=== PATIENT | male | born 1980 | race African-American/Black ===

== ENCOUNTER 2016-12-03 08:06 | Emergency (ER) | payer OTHER ==
[~2016-12-03 08:06] MED LIST: ABILIFY5 MG PO; ALBUTEROL SULF8.5 GM IH; ALBUTEROL17 GM IH; AMOXICILLIN500 M1 PO; Benadryl PO; CILOXAN 0.1 APPLICAT LEFT EYE; CLEOCIN300 MG PO; DILAUDID2 MG PO; ERYTHROMYC1 APPLICAT; FLEXERIL10 MG PO; Flexeril PO; HYCODAN SYRUP480 ML PO; IBUPROFEN800 MG PO; KEFLEX500 MG PO; METHADONE10 MG/1 M1 PO; MOTRIN800 MG PO; NAPROSYN500 MG PO; NOHOMEMEDS; PERCOCET 5/31 TABLET PO; PREDNISONE20 M1 PO; PREDNISONE50 MG PO; PROVENTIL,2.5 MG/3 M IH; RISPERIDONE0.5 MG PO; SAPHRIS2.5 MG SL; TYLENOL325 M1 PO; ZITHROMAX Z-PA250 MG PO; celeXA PO
== END 2016-12-03 08:15 | disposition left against medical advice (07) ==
LOC: EME 08:06
DX: S61.411A Laceration without foreign body of right hand, initial encounter (principal); Z53.21 Procedure and treatment not carried out due to patient leaving prior to being seen by health care provider

== ENCOUNTER 2017-01-24 15:00 | Emergency (ER) | payer OTHER ==
[~2017-01-24] VITALS: Ht 182.9 cm; Wt 104.5 kg
[2017-01-24] MEDS ORDERED: VALIUM5 MG PO (15:33)
[2017-01-24] MEDS ORDERED: PREDNISONE10 MG PO (15:33)
[2017-01-24] MEDS ORDERED: METHADONE HCL40 MG PO (15:53)
[2017-01-24 16:08] VITALS: BP 139/87
== END 2017-01-24 16:11 | disposition home or self-care (01) ==
LOC: EME 15:00
DX: M54.5 Low back pain (principal); M62.838 Other muscle spasm; Z88.6 Allergy status to analgesic agent; Z88.2 Allergy status to sulfonamides; Z88.1 Allergy status to other antibiotic agents
CPT/HCPCS: 99281; 99284; J1100; J1885

== ENCOUNTER 2018-01-17 12:34 | Emergency (ER) | payer OTHER ==
[~2018-01-17] VITALS: Ht 182.9 cm; Wt 95.7 kg
[~2018-01-17 12:34] MED LIST changes: +METHADONE HCL40 MG PO; +PREDNISONE10 MG PO; +VALIUM5 MG PO
[2018-01-17 13:38] VITALS: BP 164/88
== END 2018-01-17 13:08 | disposition left against medical advice (07) ==
LOC: EME 12:34
DX: Z04.6 Encounter for general psychiatric examination, requested by authority (principal); Z53.21 Procedure and treatment not carried out due to patient leaving prior to being seen by health care provider
CPT/HCPCS: 80048; 85027; G0480; J2250

== ENCOUNTER 2018-01-17 18:55 | Inpatient (IN) | payer OTHER ==
[~2018-01-17] VITALS: Ht 188 cm; Wt 94.3 kg
[2018-01-17 19:30] LABS: BASOPHIL (%) 0.2 % (0-1); EOSINOPHIL (%) 0.7 % (0-5); EOSINOPHIL COUNT 0.1 K/uL (0-0.3); HEMATOCRIT 44.6 % (38.0-50.0); IMMATURE GRANULOCYTE (%) 0.4 % (0.0-0.7); LYMPHOCYTE (%) 15.2 % (15-42); LYMPHOCYTE COUNT 1.6 K/uL (1.0-2.8); MCH 30.3 PG (29.0-34.0); MCHC 33.6 G/DL (30.0-36.0); MCV 90.1 FL (86-99); MONOCYTE (%) 3.8 % (3-12); MONOCYTE COUNT 0.4 K/uL (0-0.8); NEUTROPHIL (%) 79.7 % (45-76); NEUTROPHIL COUNT 8.5 K/uL (1.8-6.4); PLATELET COUNT 347 K/uL (156-360); RBC DIS.WIDTH-CV 12.7 % (11.8-14.6); RBC DIS.WIDTH-SD 41.6 % (39-53); RED BLOOD COUNT 4.95 M/uL (4.00-5.50); WHITE BLOOD COUNT 10.7 K/uL (4.1-10.2)
[2018-01-17 20:22] LABS: ACETAMINOPHEN (TYLENOL) < 10 MCG/ML (10-30); ALBUMIN 4.4 G/DL (3.2-4.8); ALKALINE PHOSPHATASE 67 IU/L (3-129); ALT (GPT) 78 IU/L (3-49); AST (GOT) 132 IU/L (2-34); CHLORIDE 105 MEQ/L (99-109); CREATININE 1.4 MG/DL (0.6-1.3); GFR ESTIMATE (CALCULATED) > 59 mL/min/ (58.99-99999); GLUCOSE 92 mg/dL (70-99); POTASSIUM 3.9 MEQ/L (3.7-5.4); SALICYLATE < 3.0 MG/DL (15-30); SERUM ETHYL ALCOHOL < 10 mg/dL; SODIUM 142 MEQ/L (136-147); TOTAL BILIRUBIN 1.5 MG/DL (0.0-1.0); TOTAL CK 8258 IU/L (1-294); TOTAL PROTEIN 7.8 G/DL (6.4-8.3); UREA NITROGEN (BUN) 16 mg/dL (9-23)
[2018-01-17 20:23] LABS: CREATINE KINASE 8258 IU/L (1-294)
[2018-01-17 20:40] LABS: CKMB RELATIVE INDEX 0.9 (0.0-3.9)
[2018-01-18 10:16] LABS: CHLORIDE 112 mEq/L (99-109); POTASSIUM 3.9 mEq/L (3.7-5.4); SODIUM 141 mEq/L (136-147)
[2018-01-18 10:18] LABS: GLUCOSE 101 mg/dL (70-99)
[2018-01-18 10:21] LABS: APPEARANCE CLOUDY ((CLEAR)); BILIRUBIN NEGATIVE; BLOOD LARGE; COLOR AMBER ((YELLOW)); GLUCOSE (STRIP) NEGATIVE; KETONES 20; LEUKOCYTES NEGATIVE; NITRITE NEGATIVE; PROTEIN (STRIP) 100; SPECIFIC GRAVITY 1.019 (1.000-1.030); UROBILINOGEN 0.2 MG/DL (0.2-1.0)
[2018-01-18 10:22] LABS: CREATININE 1.3 mg/dL (0.6-1.3); GFR ESTIMATE (CALCULATED) > 59 mL/min/ (58.99-99999)
[2018-01-18 10:23] LABS: UREA NITROGEN (BUN) 22 mg/dL (9-23)
[2018-01-18 10:35] LABS: AMPHETAMINE NEGATIVE (500 ng/mL); BARBITURATES NEGATIVE (200 ng/mL); BENZODIAZEPINES PRESUMPTIVE POSITIVE (150 ng/mL); BUPRENORPHINE NEGATIVE (10 ng/mL); COCAINE PRESUMPTIVE POSITIVE (150 ng/mL); METHADONE PRESUMPTIVE POSITIVE (200 ng/mL); METHAMPHETAMINE NEGATIVE (500 ng/mL); OPIATES (MORPHINE) PRESUMPTIVE POSITIVE (100 ng/mL); OXYCODONE NEGATIVE (100 ng/mL); PHENCYCLIDINE NEGATIVE (25 ng/mL); PROPOXYPHENE NEGATIVE (300 ng/mL); THC CANNABINOIDS NEGATIVE (50 ng/mL); TRICYCLIC ANTIDEPRESSANTS NEGATIVE (300 ng/mL)
[2018-01-18 10:53] LABS: RED BLOOD CELLS NONE SEEN /HPF (0-5); WHITE BLOOD CELLS 0-5 /HPF (0-5)
[2018-01-18 10:54] LABS: BACTERIA RARE /HPF; EPITHELIAL CELLS NONE SEEN /HPF; MUCUS NONE SEEN /LPF
[2018-01-18 10:55] LABS: AMORPHOUS URATES CRYSTALS 3+; HYALINE CASTS 0-5 /LPF
[2018-01-18 11:08] LABS: HEPATITIS B SURFACE ANTIGEN Nonreactive
[2018-01-18 11:09] LABS: ANTI-HEPATITIS B CORE (IGM) Nonreactive; HEPATITIS B SURFACE ANTIBODY Nonreactive; HEPATITIS C ANTIBODY REACTIVE
[2018-01-18 11:27] LABS: BENZODIAZEPINES, URINE SCREEN POSITIVE (200 ng/mL)
[2018-01-18 12:47] LABS: CREATINE KINASE 84050 IU/L (1-294)
[2018-01-18 20:20] VITALS: BP 137/65
[2018-01-18 23:54] VITALS: BP 132/69
[2018-01-19 04:13] VITALS: BP 148/88
[2018-01-19 07:01] LABS: PLAT.SUFFICIENCY ADEQUATE
[2018-01-19 07:04] LABS: HEMATOCRIT 40.9 % (38.0-50.0); HEMOGLOBIN 13.6 G/DL (12.5-16.6); MCH 30.7 PG (29.0-34.0); MCHC 33.3 G/DL (30.0-36.0); MCV 92.3 FL (86-99); RBC DIS.WIDTH-CV 12.6 % (11.8-14.6); RBC DIS.WIDTH-SD 42.8 % (39-53); RED BLOOD COUNT 4.43 M/uL (4.00-5.50); WHITE BLOOD COUNT 9.9 K/uL (4.1-10.2)
[2018-01-19 07:05] LABS: PLATELET COUNT 202 K/uL (156-360)
[2018-01-19 07:41] LABS: CHLORIDE 109 MEQ/L (99-109); CREATININE 1.1 MG/DL (0.6-1.3); GFR ESTIMATE (CALCULATED) > 59 mL/min/ (58.99-99999); GLUCOSE 96 mg/dL (70-99); POTASSIUM 3.9 MEQ/L (3.7-5.4); SODIUM 143 MEQ/L (136-147); UREA NITROGEN (BUN) 16 mg/dL (9-23)
[2018-01-19 07:42] LABS: CREATINE KINASE 41000 IU/L (1-294)
[2018-01-19 08:22] VITALS: BP 134/71
[2018-01-19 11:21] VITALS: BP 144/82
[2018-01-19 15:37] VITALS: BP 144/81
[2018-01-19 20:02] VITALS: BP 131/74
[2018-01-20] VITALS: BP 146/79
[2018-01-20 04:00] VITALS: BP 141/84
[2018-01-20 08:22] LABS: CREATINE KINASE 27400 IU/L (1-294)
[2018-01-20 08:32] VITALS: BP 134/82
[2018-01-20 11:10] VITALS: BP 129/80
[2018-01-20 11:46] LABS: CREATININE 0.9 MG/DL (0.6-1.3); GFR ESTIMATE (CALCULATED) > 59 mL/min/ (58.99-99999); GLUCOSE 116 mg/dL (70-99); UREA NITROGEN (BUN) 12 mg/dL (9-23)
[2018-01-20 11:47] LABS: ALBUMIN 3.4 G/DL (3.2-4.8); CHLORIDE 113 MEQ/L (99-109); POTASSIUM 3.5 MEQ/L (3.7-5.4); SODIUM 146 MEQ/L (136-147); TOTAL BILIRUBIN 0.4 MG/DL (0.0-1.0); TOTAL PROTEIN 5.6 G/DL (6.4-8.3)
[2018-01-20 11:48] LABS: ALKALINE PHOSPHATASE 45 IU/L (3-129); ALT (GPT) 166 IU/L (3-49); AST (GOT) 357 IU/L (2-34)
[2018-01-20] MEDS ORDERED: QUETIAPINE FUM100 MG PO (12:49)
[2018-01-20 15:07] VITALS: BP 139/77
== END 2018-01-20 15:18 | disposition home or self-care (01) | DRG 558 ==
LOC: EME → EDBD 18:55 → EDOF 01-18 01:25 → 5SOUTH 01-18 01:25 → ENRESERV 01-18 01:29 → 5SOUTH 01-18 17:28
PROVIDERS: Emergency Medicine; Hospitalist; Internal Medicine; Physician Assistant Medical
DX: M62.82 Rhabdomyolysis (principal); N17.9 Acute kidney failure, unspecified; F20.0 Paranoid schizophrenia; B18.2 Chronic viral hepatitis C; F11.10 Opioid abuse, uncomplicated; F14.129 Cocaine abuse with intoxication, unspecified; F60.2 Antisocial personality disorder; J45.909 Unspecified asthma, uncomplicated; F17.210 Nicotine dependence, cigarettes, uncomplicated
CPT/HCPCS: 73610; 76705; 76937; 80048; 80053; 80306 90; 81003; 82550; 82553; 84999; 85025; 85027; 86705; 86706; 86803; 87340; 90686; 93005; 99281; 99285; C1753; G0480; J1200; J1630; J1650; J2060; J3010; J3486; J7030; J7120

== ENCOUNTER 2018-03-07 08:45 | Emergency (ER) | payer SELFPAY ==
[~2018-03-07] VITALS: Ht 185.4 cm; Wt 98.1 kg
[~2018-03-07 08:45] MED LIST changes: +QUETIAPINE FUM100 MG PO
[2018-03-07 09:31] LABS: BASOPHIL (%) 0.2 % (0-1); EOSINOPHIL (%) 2.5 % (0-5); EOSINOPHIL COUNT 0.2 K/uL (0-0.3); HEMATOCRIT 39.1 % (38.0-50.0); HEMOGLOBIN 13.2 G/DL (12.5-16.6); IMMATURE GRANULOCYTE (%) 0.2 % (0.0-0.7); LYMPHOCYTE (%) 17.6 % (15-42); LYMPHOCYTE COUNT 1.6 K/uL (1.0-2.8); MCH 31.4 PG (29.0-34.0); MCHC 33.8 G/DL (30.0-36.0); MCV 93.1 FL (86-99); MONOCYTE (%) 6.7 % (3-12); MONOCYTE COUNT 0.6 K/uL (0-0.8); NEUTROPHIL (%) 72.8 % (45-76); NEUTROPHIL COUNT 6.6 K/uL (1.8-6.4); RBC DIS.WIDTH-CV 12.1 % (11.8-14.6); RBC DIS.WIDTH-SD 41.6 % (39-53); WHITE BLOOD COUNT 9.1 K/uL (4.1-10.2)
[2018-03-07 09:42] LABS: CHLORIDE 104 mEq/L (99-109); POTASSIUM 3.8 mEq/L (3.7-5.4); SODIUM 142 mEq/L (136-147)
[2018-03-07 09:43] LABS: GLUCOSE 91 mg/dL (70-99)
[2018-03-07 09:47] LABS: CREATININE 0.9 mg/dL (0.6-1.3); GFR ESTIMATE (CALCULATED) > 59 mL/min/ (58.99-99999)
[2018-03-07 09:48] LABS: UREA NITROGEN (BUN) 12 mg/dL (9-23)
[2018-03-07 10:05] LABS: PLAT.SUFFICIENCY ADEQUATE; PLATELET COUNT 207 K/uL (156-360)
[2018-03-07] MEDS ORDERED: CLEOCIN300 MG PO (11:23)
[2018-03-07 11:35] VITALS: BP 140/66
== END 2018-03-07 11:52 | disposition home or self-care (01) ==
LOC: EME 08:45
PROVIDERS: Emergency Medicine
DX: L03.116 Cellulitis of left lower limb (principal); J45.909 Unspecified asthma, uncomplicated; I10 Essential (primary) hypertension; F17.200 Nicotine dependence, unspecified, uncomplicated; F11.20 Opioid dependence, uncomplicated; Z88.5 Allergy status to narcotic agent; Z88.2 Allergy status to sulfonamides
CPT/HCPCS: 80048; 85025; 99281; 99284

== ENCOUNTER 2018-03-16 02:08 | Emergency (ER) | payer SELFPAY ==
[~2018-03-16] VITALS: Ht 182.9 cm; Wt 93.1 kg
[2018-03-16 04:02] LABS: HEMATOCRIT 38.1 % (38.0-50.0); HEMOGLOBIN 12.9 G/DL (12.5-16.6); MCH 30.7 PG (29.0-34.0); MCHC 33.9 G/DL (30.0-36.0); MCV 90.7 FL (86-99); RBC DIS.WIDTH-CV 12.2 % (11.8-14.6); RBC DIS.WIDTH-SD 40.3 % (39-53); WHITE BLOOD COUNT 13.9 K/uL (4.1-10.2)
[2018-03-16 04:04] LABS: PLATELET COUNT 322 K/uL (156-360)
[2018-03-16 04:13] LABS: CHLORIDE 106 mEq/L (99-109); SODIUM 142 mEq/L (136-147)
[2018-03-16 04:14] LABS: GLUCOSE 110 mg/dL (70-99)
[2018-03-16 04:18] LABS: CREATININE 1.1 mg/dL (0.6-1.3); GFR ESTIMATE (CALCULATED) > 59 mL/min/ (58.99-99999)
[2018-03-16 04:19] LABS: UREA NITROGEN (BUN) 16 mg/dL (9-23)
[2018-03-16 05:14] VITALS: BP 173/92
[2018-03-16] MEDS ORDERED: AUGMENTIN875 MG PO (05:36)
== END 2018-03-16 04:55 | disposition left against medical advice (07) ==
LOC: EME 02:08
PROVIDERS: Emergency Medicine
DX: S31.159A Open bite of abdominal wall, unspecified quadrant without penetration into peritoneal cavity, initial encounter (principal); W54.0XXA Bitten by dog, initial encounter; F17.200 Nicotine dependence, unspecified, uncomplicated; Z88.2 Allergy status to sulfonamides; Z88.5 Allergy status to narcotic agent; Z88.1 Allergy status to other antibiotic agents; Z88.8 Allergy status to other drugs, medicaments and biological substances
CPT/HCPCS: 80048; 85027; 90837; 99281; 99284; J2405